=== PATIENT | male | born 1965 | race Caucasian/White ===

== ENCOUNTER 2018-10-20 12:22 | Day surgery (SDC) | payer OTHER, SELFPAY ==
[2018-10-15 15:21] VITALS: BMI 35.2
[2018-10-20] VITALS (16 sets, daily range): BP systolic 132–157; BP diastolic 75–96; PULSE 60–96; RESP 10–20; TEMP 36.2–36.7; O2SAT 92–99; BMI 35.2
--- NOTE | 2018-10-20 | DI.RAD.S_ITS ---
PROCEDURE: XR CERVICAL SPINE 2V OR 3V INDICATIONS: ACDF C5-6, C6-7 TECHNIQUE: 2 intraoperative fluoroscopic view(s) of the cervical spine were acquired. COMPARISON: None. FINDINGS: Bones: Intraoperative fluoroscopic views demonstrate ACDF at C5-6 and C6-7. IMPRESSION: Intraoperative views of ACDF at C5-6 and C6-7. Dictated by: Bernie Clifford M.D. on 10/20/2018 at 18:28 Approved by: Bernie Clifford M.D. on 10/20/2018 at 18:29
[2018-10-20] MEDS: LACTATED RINGERS 1,000 ML 42 ML IV ×2 (12:55→16:22)
--- NOTE | 2018-10-20 14:09 | PM.PREOP ---
Pre-operative Note Interval Note Pre-op Check: Yes History & Physical Reviewed by Physician and Yes Exam Performed Changes: No
[2018-10-20] MEDS: CEFAZOLIN 2 GM/100 ML FROZ.PIGGY IV ×2 (15:00→21:03)
--- NOTE | 2018-10-20 15:27 | SUR.OPER ---
Supine, head on gel donut. Arms padded with gel pads, tucked at sides, towel roll under shoulders. Safety belt at thigh. Legs uncrossed.
[2018-10-20] MEDS: THROMBIN (BOVINE) 5,000 UNIT VIAL 5000 UNIT TOP ×3 (15:36→16:24)
[2018-10-20] MEDS: SODIUM CHLORIDE 0.9% 1,000 ML, GENTAMICIN 80 MG IRR (15:37)
--- NOTE | 2018-10-20 17:33 | PM.OP.1 ---
Operative Date/Time/Diagnoses Date of procedure: 10/20/18 Time of procedure: 17:33 Pre-op diagnosis: Cervical stenosis with radiculopathy Post-op diagnosis: same Procedure & Clinicians Procedure: C5-6 and C6-7 anterior diskectomy artificial disc replacement Use of microscope Same procedure as scheduled: Yes Indications: [age] year old male with intractable pain from cervical stenosis. They had failed conservative management and requested operative intervention. Risks and benefits of surgery were discussed and appropriate consents were obtained. Surgeon: Dusty Gil Sap Ppm Consultant: Fabiana Moy Anesthesia Type: General Operative Notes Findings: dura tear, repaired Closure Type: primary Specimen(s): none sent Implants & Drains: Shannon LDR JOLEEN-C Estimated Blood Loss (mL): 10 Procedure in detail: Patient was brought to the operating room and intubated on the table. A time-out was performed. Preoperative antibiotics were given. The neck was prepped and draped in the standard sterile fashion. Using a skin fold, we made a 3 cm oblique incision on the left side. We used Bovie to go through the platysma and then did a standard anterolateral blunt dissection down to the precervical fascia. Fascia was nicked and elevated up. A marker was placed and x-ray was taken for localization. We then subperiosteally elevated up the longus colli muscles. Self-retaining retractors were placed. [place] pins were placed under x-ray guidance to be parallel to the endplates. We then brought in the microscope. A scalpel used to perform an annulotomy. We then used a combination of pituitaries and curettes and Kerrison to perform a complete anterior diskectomy at C6-7. We took down the PLL and used Kerrison to remove any posterior disc material and osteophytes. At the end we could from the nerve hook cephalad caudally and out the foramen and everything was opened. We distracted open with the parallel infantry weapons crewmember.However, when we were going underneath of the left osteophytes coming off the bottom of C6, the dura was adhesed to this area and a small dural tear occurred with some small amount of CSF leakage. We made sure everything was free and decompressed. We then used Gel-Foam and then FloSeal to get this area to clot over. Once this was watertight, we placed a layer of Tisseel on top of this. Everything was watertight. We then used the horseshoes for sizing. We then used the trials. We then inserted a 19 mm x 15 mm x 6 mm size Mobi-C artificial disc replacement under fluoroscopic guidance for positioning. The traction was released and x-ray was checked again. We then moved up to the C5-6 level. [place] pins were inserted with fluoroscopy. We again performed a complete diskectomy including taking down the PLL. We widely decompressed the osteophytes in the midline coming off of the base of C5 until we could easily run a nerve hook underneath and the foramen were opened as well as cephalad and caudally. We trialed and then placed another artificial disc replacement, 17 x 15 x 6 mm. This was done under fluoroscopic guidance. We then compressed and removed the distractors. There was still some clear fluid appearing in the wound area. I felt that it would be most prudent to re-explore to make sure that this was not CSF versus just residual irrigation fluid. We distracted across the [place] pins at C6-7 remove the artificial disc replacement. The area was explored. I did not see any leakage. We again irrigated. I again placed a layer of FloSeal and after several minutes removed the majority of it and then placed a layer of Tisseel on top of it. We then inserted the disc replacement again under fluoroscopic guidance, compressed down the retractors, and removed the cycling instructor. All the retractors were removed and final x-rays were taken. The wound was copiously irrigated. We watch this for another 10 min and no further fluid appeared to show up. The wound was irrigated. There was no bleeding. The carotid was beating nicely. The platysma was closed. The superficial was closed. The skin was closed. A sterile dressing was placed. They were then extubated and brought to recovery room with no complications. Complications: none Condition: stable Disposition: PACU Plan for aftercare: Overnight admission. Keep head of bed elevated. Probable discharge home tomorrow.
[2018-10-20] MEDS: fentaNYL 100 MCG/2 ML INJ 50 MCG IV (18:07)
[2018-10-20] MEDS: HYDROMORPHONE 2 MG INJ 0.5 MG IV ×4 (18:13→18:38)
--- NOTE | 2018-10-20 19:05 | SUR.PHASEI ---
1843 late entry Stable throughout PACU stay. Anterior neck dressing has remained CDI. Pain level improving, to 2/10; tolerating ice chips well. Skin warm and dry; resp even and regular. Transported to room 213, bed down and locked, call light within reach, O2 at 2LNP, SCDs on. at bedside. No questions/concerns. Report called to SHEYLA Carcamo prior to transfer.
[2018-10-20] MEDS: LACTATED RINGERS 1,000 ML 125 ML IV (19:19)
[2018-10-20] MEDS: HYDROCODONE/ACET 5/325 TABLET 1 TAB PO (19:28)
[2018-10-20] MEDS: DOCUSATE 100 MG CAPSULE PO (21:03)
[2018-10-20] MEDS: SENNOSIDES 8.6 MG TABLET 17.2 MG PO (21:03)
[2018-10-20] MEDS: GABAPENTIN 300 MG CAPSULE PO (21:04)
[2018-10-20] MEDS: hydrOXYzine pamoate 25 MG CAPSULE PO (21:04)
[2018-10-20] MEDS: HYDROMORPHONE 0.5 MG INJ IV (21:42)
[2018-10-21] VITALS: BP 153/93; PULSE 96; RESP 18; TEMP 36.6; O2SAT 95
[2018-10-21] MEDS: HYDROCODONE/ACET 5/325 TABLET 2 TAB PO ×2 (00:16→04:30)
[2018-10-21] MEDS: HYDROMORPHONE 0.5 MG INJ IV (01:11)
[2018-10-21 02:00] VITALS: O2SAT 95
[2018-10-21] MEDS: LACTATED RINGERS 1,000 ML 125 ML IV (03:47)
[2018-10-21 03:54] VITALS: BP 137/79; PULSE 83; RESP 17; TEMP 36.7; O2SAT 94
[2018-10-21] MEDS: CEFAZOLIN 2 GM/100 ML FROZ.PIGGY IV (04:31)
--- NOTE | 2018-10-21 07:25 | P.DS_ITS ---
History of Present Illness Date Patient Seen: 10/21/18 Time Patient Seen: 07:20 Chief complaint: [id number] C5-6 C6-7 *OPB* Narrative: Patient seen bedside s/p C5-6, C6-7 Anterior discectomy & artificial disc replacement by Dr. Gil on 10/20/18. Patient had a difficult night pain-lynne but would like to go home. Denies MARTINEZ, numbness/tingling into arms. Discharge Providers Primary care physician: Loc Lee MD Consults: 10/20/18 18:59 Consult to Occupational Therapy Evaluate & Treat Comment: Physician Instructions: Evaluate and treat Consult to Physical Therapy Evaluate & Treat Comment: Physician Instructions: Evaluate and Treat Discharge provider: Clemencia Lutz PA-C Discharge Date: 10/21/18 Summary Discharge Diagnosis: 1. Cervical spinal stenosis 2. Cervical disc herniation Hospital Course: Patient was placed on a 23-hr stay s/p C56 and C67 anterior discectomy and artificial disc replacement with Dr. Gil on 10/20/18. He tolerated the surgery well with no major incidents. He was transferred to the acute care floor where he was seen by PT and recommended for discharge home. He was stable and ready for discharge on 10/21/18. Status at Discharge Cognitive/behavioral status at discharge: Alert & oriented x3 Functional status at discharge: independent ambulation Overall status at discharge: patient is progressing back to baseline Time Spent with Patient Less than 30 minutes Exam Vital Signs (past 8 hours): - 10/21/18 00:00 10/21/18 02:00 10/21/18 03:54 Temperature 97.9 F 98.1 F Pulse Rate 96 H 83 Respiratory Rate 18 17 Blood Pressure 153/93 H 137/79 Pulse Oximetry 95 95 94 Oxygen Delivery Method Nasal Cannula Oxygen Flow Rate 0 Narrative Exam Narrative: WDWN NAD A&Ox3. Anterior neck dressing has some mild sanguineous drainage on it, but it appears old. Minor erythema/edema surrounding incision site. Full sensation in BUE. Pulses present. No focal deficits noted. Discharge Plan Discharge Plan Patient Disposition: Home Discharge comment: d/c after PT Discharge Med Rec/Prescriptions Prescriptions: New hydroxyzine pamoate 25 mg Capsule 25 mg PO Q4HR PRN (Reason: Nausea And Vomiting) Qty: 40 RF: 0 oxycodone 5 mg Tablet 5 mg PO Q4H PRN (Reason: Pain, Moderate (4-6)) Qty: 40 RF: 0 Discontinued methocarbamol [Robaxin] 500 mg Tablet 1 - 2 tab PO Q4H PRN (Reason: pain) RF: 0 hydroxyzine pamoate [Vistaril] 25 mg Capsule 1 - 2 tab PO Q6H PRN (Reason: Nausea) RF: 0 Follow up/Referrals: Dusty Gil MD [Physician] - (Follow up on 10/28/18 at 2:40 pm with Dorothy Dumont PA-C at the [facility] [place]) Loc Lee MD [Primary Care Provider] - (follow up with your primary care provider ) Discharge Orders: Discharge (Order); Ordered 10/21/18 Ordered By: Clemencia Lutz Provider Discharge Instructions Diet: Diet as Tolerated Activity: Weightbearing as tolerated, limiting bending/twisting neck. Wear neck brace. Skin/Wound/Dressing Care Report to your healthcare provider any signs of infection, such as:: chills, fever, night sweats, increased pain, unusual drainage and unusual redness Dressing: May shower with dressing in place. Visit Report/Discharge Packet Instructions: DI for Anterior Cervical Discectomy and Fusion, Oxycodone, Hydroxyzine Stand Alone Forms: Surgery Discharge Discharge Data Primary Care Provider: Loc Lee Attending Provider: Dusty Gil Discharges patient from system. Discharge Date/Time: 10/21/18 09:53 Quality VTE Deep Vein Thrombosis/Pulmonary Embolism Present on Admission: No
--- NOTE | 2018-10-21 07:41 | PM.PNPO.1 ---
Subjective Date Patient Seen: 10/21/18 Time Patient Seen: 07:41 Interval history: He is doing fine. Had a rough night but the pain levels are undermined pressure control now. Pain to the back of the neck. Arms feel fine. No headache or nausea or photophobia. Exam Vital Signs (past 8 hours): - 10/21/18 00:00 10/21/18 02:00 10/21/18 03:54 Temperature 97.9 F 98.1 F Pulse Rate 96 H 83 Respiratory Rate 18 17 Blood Pressure 153/93 H 137/79 Pulse Oximetry 95 95 94 Oxygen Delivery Method Nasal Cannula Oxygen Flow Rate 0 Const Orientation: alert and oriented x3 Back/Spine/Pelvis Other: Mild bloody drainage on dressing. 5/5 motor both upper extremities. Assessment & Plan Post-op Postoperative Procedures Operation Date: 10/20/18 14:00 Actual Procedures Side Surgeon p C5-6, C6-7 Anterior discectomy & artificial disc replacement Dusty Gil MD He is doing very well. No signs of any CSF leak. Plan to discharge home today. Quality VTE Deep Vein Thrombosis/Pulmonary Embolism Present on Admission: No
--- NOTE | 2018-10-21 07:49 | PC.NURSE ---
Patient sitting up in bed this morning. States pain is manageable at a 2-3 out of 10 now, just a dull aching across his upper back mostly. Denies needs at this time. Plan for P.T. this morning and discharge afterwards as patient tolerates. Call light within reach, continue to monitor.
[2018-10-21] MEDS: OXYCODONE IR 5 MG TABLET PO (08:38)
--- NOTE | 2018-10-21 09:00 | OT.IP.TRT ---
Current Diagnoses Spinal stenosis, cervical region (10/20/18) Other cervical disc displacement, unspecified cervical region (10/20/18) Surgery Performed Operation Date: 10/20/18 14:00 Actual Procedures p C5-6, C6-7 Anterior discectomy & artificial disc replacement - Dusty Gil MD Occupational Therapy Treatment Note M3 OT- IP Subjective and Pain Start: 10/21/18 10:18 Freq: Status: Active Protocol: Document 10/21/18 10:18 PJ (Rec: 10/21/18 10:19 PJ [id number]) OT- Subjective Occupational Therapy Visit Type Type Administrative Note Visit Start Time 09:00 Notes OT referral received. Per discussion with P.T., pt independent in room with all self care including dressing. P.T. educated pt re: cervical precautions, No OT needs identified for this admission. No charge.
--- NOTE | 2018-10-21 09:10 | PT.IIE ---
Current Diagnoses Spinal stenosis, cervical region (10/20/18) Other cervical disc displacement, unspecified cervical region (10/20/18) Surgery Performed Operation Date: 10/20/18 14:00 Actual Procedures p C5-6, C6-7 Anterior discectomy & artificial disc replacement - Dusty Gil MD Surgical History (Last Updated 10/15/18 @ 15:30 by Willow Damon, RN) History of bunionectomy of both great toes (Acute) Hx of arthroscopy of right knee (Acute) Hx of tonsillectomy (Acute) S/P epidural steroid injection (Acute 07/08/18) Medical History (Last Updated 10/15/18 @ 15:30 by Willow Damon RN) Anemia, secondary (Acute) GERD (gastroesophageal reflux disease) (Acute) Ganglion cyst of finger (Acute) Physical Therapy Inpatient Evaluation/Re-Eval M1 PT/OT-IP Prior Functional Status Start: 10/21/18 11:04 Freq: NEEDED Status: Active Protocol: Document 10/21/18 09:10 AB (Rec: 10/21/18 11:15 AB [id number]) Medical Review Prior Functional Status Medical History Reviewed Yes Communication able to make needs known Mobility and Gait pt stated that he is independent with all mobilities and ambulation without AD Social History Household Members spouse Living Arrangements House Number of Floors (Floors) Two Floors Number of Stairs To Enter/Railing? 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 discectomy & disc replacement; difficulty in walking Onset Date 10/20/18 Precautions Cervical Spine Precautions Soft Collar for Comfort No Heavy Lifting Log Roll M3 PT-IP Subjective Start: 10/21/18 11:04 Freq: NEEDED Status: Active Protocol: Document 10/21/18 09:10 AB (Rec: 10/21/18 11:15 AB [id number]) Subjective Physical Therapy Visit Type Type Initial Evaluation Visit Start Time 09:10 Visit Stop Time 09:26 Total Visit Minutes 16 Number of TINNER AUTOMATIC Visits 0 Physical Therapy Visit Comments Patient Comments stated that he is ready to go home Therapy Pain Assessment Pain When Pain Assessed At Rest Pain Present Pain Present Pain Reported Location Neck Intensity 2 Scale Used Numeric (1 - 10) Pain Management Techniques Timing of Activity with Medications M4 PT-IP Mobility and Gait Start: 10/21/18 11:04 Freq: NEEDED Status: Active Protocol: Document 10/21/18 09:10 AB (Rec: 10/21/18 11:15 AB [id number]) PT-Bed Mobility Assessment Rolling Type of Rolling Log Rolling Level of Assist Standby Assistance Supine to Sit Supine to Sit Standby Assistance Sit to Supine Sit to Supine Standby Assistance Scooting Scooting to Edge of Bed Independent Scooting Up and Down in Bed Independent PT-Transfer Assessment Sit to and From Stand Sit to and from Stand Independent Equipment Transfer Assistive Device None Gait Belt Orthotic/Prosthetic Devices or Brace: Yes Transfers Transfer Destination Bed Transfer Technique Stand Step Pivot Transfer Ability Level of Assist Independent Gait Assessment Gait Gait Assistance Required: Standby Assistance Distance (Feet) 150 Able to Maintain Weight Bearing Status Yes During Gait Assistive Devices Assistive Device None Gait Belt Orthotic/Prosthetic Devices or Brace: Yes Comments Gait Comments has soft collar on Stair Climbing Assessment Evaluation Level of Assist On Stairs Standby Assistance Devices Stair Climbing Assistive Devices None Technique/Endurance Stair Climbing Direction Ascend and Descend Stair Climbing Technique Step to Step Number of Steps Climbed 3 Query Text: Stair Climbing Set # Repetitions (reps) 2 PT-Balance Assessment Sitting Balance and Reactions Static Sitting Balance Ability Normal Dynamic Sitting Balance Ability Normal Standing Balance and Reactions Static Standing Balance Ability Good Dynamic Standing Balance Ability Good Device Used without AD M5 PT-IP Objective Assessments Start: 10/21/18 11:04 Freq: NEEDED Status: Active Protocol: Document 10/21/18 09:10 AB (Rec: 10/21/18 11:15 AB [id number]) Orientation Orientation/Cognition Level of Alertness Alert Orientation Name Age Birthday Month Date Year Day of Week Place Situation Safety Awareness Understands Safety Issues Memory Description No Deficits Noted Gross Range of Motion Upper Extremity ROM Assessment Within Functional Limits Lower Extremity ROM Assessment Within Functional Limits Strength Lower Extremity Strength Assessment Within Functional Limits Coordination Assessment Gross Coordination Gross Coordination WNL Sensation Assessment Sensation Gross Sensation WNL Muscle Tone Muscle Tone WNL Yes M6 PT-IP Treatment Start: 10/21/18 11:04 Freq: NEEDED Status: Active Protocol: Document 10/21/18 09:10 AB (Rec: 10/21/18 11:15 AB [id number]) Physical Therapy Treatment Education Education Provided Precautions Weight Bearing Status Post-Op Packet Safety Other Treatments Other Treatment Performed educated on soft collar managemet; pt was able to elio and doff cervical collar independently M7 PT-IP Assessment and Plan Start: 10/21/18 11:04 Freq: NEEDED Status: Active Protocol: Document 10/21/18 09:10 AB (Rec: 10/21/18 11:15 AB [id number]) PT Summary Assessment and Plan Potential Rehabilitation Potential Excellent Status of Condition at Evaluation Stable Summary Impairments Pain Gait Assessment Summary pt doing well with mobility and will have spouse to assist him at home. pt may go home when medically stable. Goals Bed Mobility Goal Independent Gait Goal Independent Gait Distance >300 Other Goals short term goal: increase ambulation without AD >300 ft independent chcf goal: improve up/ down steps without rails mod I Days to Meet Goals 2 Frequency of Treatment Frequency Of Treatment Twice a Day Treatment Plan Physical Therapy Treatment Plan Bed Mobility Training Transfer Training Gait Training Therapeutic Exercise Balance Retraining Post Op Education Discharge Planning Hot or Cold Pack Neuromuscular Re-ed Coordination Retraining Manual Therapy Recommendations To Nursing Amount of Assist Needed Standby Assistance Discharge Recommendations PT Discharge Recommendations Home with Assistance
--- NOTE | 2018-10-21 09:50 | PC.NURSE ---
Discharge instructions and home care instructions reviewed with patient, he states understanding and has no further questions or concerns at this time. IV dc'd intact. Dressing changed prior to dc, cdi, with soft collar in place. Patient has follow up scheduled. Escorted out by MAINTENANCE CHIEF via wheelchair with all belongings.
== END 2018-10-21 09:53 | disposition home or self-care (01) ==
LOC: OR 12:24 → AC 12:25
PROVIDERS: PCP Family Medicine; Visit Provider Orthopaedic Surgery
PROC: (CPT 22856; principal; 2018-10-20 14:00)
DX: M48.02 Spinal stenosis, cervical region (principal); M54.12 Radiculopathy, cervical region; M50.11 Cervical disc disorder with radiculopathy, high cervical region; M40.202 Unspecified kyphosis, cervical region; E66.9 Obesity, unspecified; D56.3 Thalassemia minor; D63.8 Anemia in other chronic diseases classified elsewhere; Z68.35 Body mass index [BMI] 35.0-35.9, adult; K21.9 Gastro-esophageal reflux disease without esophagitis
CPT/HCPCS: 22856; 22858; 72040; 76001; 94760; 94762; 97161; C1776; J0690; J1100; J1170; J2250; J2405; J2704; J3010